=== PATIENT | female | born 1965 | race Caucasian/White ===

== ENCOUNTER 2016-05-25 09:17 | Emergency (ER) | payer OTHER ==
--- NOTE | 2016-05-25 09:49 | DIAGNOSTIC IMAGING REPORT ---
PROCEDURE: XR CHEST 1 VIEW INDICATION: CHEST PAIN, initial encounter TECHNIQUE: Portable AP view 09:37 a.m. COMPARISON: Chest x-ray 11/27/2015 FINDINGS: Lungs are clear. Heart and mediastinum are normal. Thorax is normal. No significant interval change. IMPRESSION: 1. Negative chest.
--- NOTE | 2016-05-25 14:39 | ED NURSING NOTES ---
Clinical Report - Nurses [facility] [place] [address] 05/25/2016 9:18 Patient: ART MAURICE TRIAGE Triage time 09:43. Acuity: LEVEL 3. Chief Complaint: CHEST PAIN and DISCOMFORT and (for 3 days, but this morning, pt developed squeezing sensation in left arm, posterior left neck, and left shoulder blade). --09:48 Carissa Young R.N. 09:43 05/25/16. BP: 124/107. HR: 110. RR: 18. O2 saturation: 98%. Temp: 98.1 F. Pain level now: 05/18. --09:48 Carissa Young R.N. Weight: 77 kg stated. Height/Length: 62 inches Per Patient. BMI: 31.1. --09:47 Craissa Young R.N. Medications HydrOXYzine HCl Oral 25 mg, 3x a day. Pramipexole Dihydrochloride ER Oral 0.125 mg, 2-3 tablets at hs. --09:58 Carissa Young R.N. FLUoxetine HCl Oral 10 mg, daily. --09:59 Carissa Young R.N. Gabapentin Oral 100 mg, 3x a day. --09:59 Carissa Young R.N. Prazosin HCl Oral 1 mg, at bedtime. --10:00 Carissa Young R.N. TraZODone HCl Oral 50 mg to 100 mg, at bedtime. --10:00 Carissa Young R.N. Vitamin D Oral 50,000 units once a week. --10:01 Carissa Young R.N. Allergies No Known Drug Allergy. --09:45 Carissa Young R.N. History Arrived by private vehicle. Historian: patient. Primary physician ([facility]). This started just prior to arrival and today. PAST MEDICAL HX: Immunizations: up-to-date. SOCIAL HX: Heavy tobacco smoker (cigarette)- 1 pack per day. Alcohol use. Patient is a recovering alcoholic. (last drink was 8 months ago). No drug use. FALL RISK ASSESSMENT: Fall risk assessment completed. No fall risk identified. FUNCTIONAL ASSESSMENT: Functional assessment: no impairments noted. LEARNING NEEDS ASSESSMENT: (anxiety). --09:48 Carissa Young R.N. 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 --09:51 Carissa Young R.N. PROBLEMS: Alcoholism. Rib Fracture. Alcohol Intoxication. Peptic Ulcer Disease. PTSD. Panic Attack. Abdominal Pain. Depression. --09:46 Carissa Young R.N. ADDITIONAL SURGERIES: Arm. Hernia Repair. Hysterectomy. Tubal Ligation. --09:47 Carissa Young R.N. Interventions ID band on patient. To room. --09:48 Carissa Young R.N. PHYSICAL ASSESSMENT GENERAL / NEURO / PSYCH: Alert. Oriented X 4. Appears anxious. (Pt is very, very anxious, now states squeezing sensation is going down her right arm). --09:49 Carissa Young R.N. NURSING PROGRESS NOTES 09:42 05/25/2016 Site #1 started via IV in the right antecubital space with an 20g angiocath, with aseptic technique and good blood return; one attempt. Blood drawn: rainbow set. Labeled in the presence of the patient and sent to the lab. Saline lock flushed with 10 mL saline. --09:52 Carissa Young R.N. 09:50 05/25/16. Patient gowned. Head of bed elevated. Patient identifiers checked. Bed placed in lowest position. Patient ready for evaluation- chart flagged. --09:50 Carissa Young R.N. 09:57 05/25/2016 Aspirin PO Tablets 325 mg given. Allergies verified and confirmed 5 rights. --09:57 Carissa Young R.N. 10:10 05/25/16. Oxygen administered by nasal cannula at 2 liters. ship superintendent, pulse oximeter and NIBP monitor placed on patient; manager information- Lead II and V1; monitor alarms on. --10:10 Carissa Young R.N. EKG time: (9:34 AM). EKG was performed by a tech and shown to the ED physician. --10:12 Antonia Nichole 12:00 05/25/16. BP: 102/55. HR: 76. RR: 18. O2 saturation: 99% on nasal cannula at 2 liters/minute. --13:19 Carissa Young R.N. 12:30 05/25/16. BP: 103/56. HR: 80. RR: 18. O2 saturation: 98%. --13:23 Carissa Young R.N. 13:15 05/25/16. BP: 95/37. HR: 78. RR: 19. O2 saturation: 100% on nasal cannula at 2 liters/minute. --13:25 Carissa Young R.N. 13:29 05/25/16. Assisted patient to bathroom, to ambulate and back to bed; tolerated well. --13:29 Carissa Young R.N. 14:54 05/25/2016 Site #1 removed upon discharge. Catheter intact. Bandage applied. --14:54 Carissa Young R.N. DISPOSITION / DISCHARGE 14:53 05/25/16. Condition at departure: improved. No learning barriers present. Reviewed warnings (avoid stimulants). Reviewed referral to family practice for followup. Verbalized understanding. Written instructions provided. --14:53 Carissa Young R.N. 14:52 05/25/16. BP: 94/49. HR: 86. RR: 18. O2 saturation: 100%. --14:53 Carissa Young R.N. Locked/Released at 05/25/2016 16:36 by Carissa Young R.N.
--- NOTE | 2016-05-25 14:39 | ED ORDER SUMMARY ---
..... Patient: ART MAURICE OrderSheet [facility] VisitID: [id number] [address] [place] [address] 50y, F Registration Date/Time: 05/25/2016 ORDER SHEET Weight: 77 kg (stated) Allergies: No Known Drug Allergy GENERAL ORDERS: Chest 1V Urgent (09:05/25/2016 Ailyn CARRERA) (Ack 9:42 RKnandiniuga) (9:51 LSullivan R.N.) Coal Pipeline Operator (Continuous) (05/25/2016 Ailyn CARRERA) (10:09 LSullivan R.N.) CBC w Diff Urgent (05/25/2016 Ailyn CARRERA) (Ack 9:42 RKnandiniuga) (9:51 LSullivan R.N.) CMP Urgent (05/25/2016 Ailyn CARRERA) (Ack 9:42 RKnandiniuga) (9:51 LSullivan R.N.) UA-Culture if indicated Urgent (05/25/2016 Ailyn CARRERA) (Ack 9:42 RKnandiniuga) (9:51 LSullivan R.N.) PT with INR Urgent (05/25/2016 Ailyn CARRERA) (Ack 9:42 RKnandiniuga) (9:51 LSullivan R.N.) PTT Urgent (05/25/2016 Ailyn CARRERA) (Ack 9:42 RKnandiniuga) (9:51 LSullivan R.N.) Amylase Urgent (05/25/2016 Ailyn CARRERA) (Ack 9:42 RKnandiniuga) (9:51 LSullivan R.N.) Lipase Urgent (05/25/2016 Ailyn CARRERA) (Ack 9:42 RKnandiniuga) (9:51 LSullivan R.N.) D-Dimer Urgent (05/25/2016 Ailyn CARRERA) (Ack 9:42 RKdon) (9:51 LSullivan R.N.) CPK Urgent (05/25/2016 Ailyn CARRERA) (Ack 9:42 RKdon) (9:51 LSullivan R.N.) Troponin-I Urgent (09:05/25/2016 Ailyn CARRERA) (Ack 9:42 RKaruga) (9:51 LSullivan R.N.) Oxygen (2 L/min) (NC) (:05/25/2016 Ailyn CARRERA) (10:09 Jdivan R.N.) EKG - ER Stat (:05/25/2016 Ailyn CARRERA) (9:40 RKaruga) Pulse oximeter (:05/25/2016 Ailyn CARRREA) (9:51 Jalyn R.N.) CPK (repeat enzymes - draw at 13:40) Urgent (10:58 05/25/2016 Ailyn CARRERA) (Ack 11:04 LTapper) (14:03 LTapper) Troponin-I (repeat enzymes - draw at 13:40) Urgent (10:58 05/25/2016 Ailyn CARRERA) (Ack 11:04 LTapper) (14:03 LTapper) MEDICATION ORDERS: Aspirin PO 325 mg (NOW) (:05/25/2016 Ailyn CARRERA) (9:57 Jalyn R.N.) IV FLUIDS: IV Saline Lock (05/25/2016 Ailyn CARRERA) (9:52 LSeduardaivan R.N.) ORDER SHEET NOTES: [Electronically signed by Carissa Young R.N. (16:36 05/25/2016)] [Electronically signed by Kishore Benoit MD (22:10 05/27/2016)] [Electronically locked/signed by Carissa Young R.N. (16:36 05/25/2016)]
--- NOTE | 2016-05-25 14:39 | ED ORDER SUMMARY ---
..... Patient: ART MAURICE OrderSheet [facility] VisitID: [id number] [address] [place] [address] 50y, F Registration Date/Time: 05/25/2016 ORDER SHEET Weight: 77 kg (stated) Allergies: No Known Drug Allergy GENERAL ORDERS: Chest 1V Urgent (09:05/25/2016 Ailyn CARRERA) (Ack 9:42 RKnandiniuga) (9:51 LSullivan R.N.) Integrity Director (Continuous) (05/25/2016 Ailyn CARRERA) (10:09 LSullivan R.N.) CBC w Diff Urgent (05/25/2016 Ailyn CARRERA) (Ack 9:42 RKnandiniuga) (9:51 LSullivan R.N.) CMP Urgent (05/25/2016 Ailyn CARRERA) (Ack 9:42 RKnandiniuga) (9:51 LSullivan R.N.) UA-Culture if indicated Urgent (05/25/2016 Ailyn CARRERA) (Ack 9:42 RKnandiniuga) (9:51 LSullivan R.N.) PT with INR Urgent (05/25/2016 Ailyn CARRERA) (Ack 9:42 RKnandiniuga) (9:51 LSullivan R.N.) PTT Urgent (05/25/2016 Ailyn CARRERA) (Ack 9:42 RKnandiniuga) (9:51 LSullivan R.N.) Amylase Urgent (05/25/2016 Ailyn CARRERA) (Ack 9:42 RKnandiniuga) (9:51 LSullivan R.N.) Lipase Urgent (05/25/2016 Ailyn CARRERA) (Ack 9:42 RKnandiniuga) (9:51 LSullivan R.N.) D-Dimer Urgent (05/25/2016 Ailyn CARRERA) (Ack 9:42 RKdon) (9:51 LSullivan R.N.) CPK Urgent (05/25/2016 Ailyn CARRERA) (Ack 9:42 RKdon) (9:51 LSullivan R.N.) Troponin-I Urgent (09:05/25/2016 Ailyn CARRERA) (Ack 9:42 RKaruga) (9:51 LSullivan R.N.) Oxygen (2 L/min) (NC) (:05/25/2016 Ailyn CARRERA) (10:09 Jdivan R.N.) EKG - ER Stat (:05/25/2016 Ailyn CARRERA) (9:40 RKaruga) Pulse oximeter (:05/25/2016 Ailyn CARRERA) (9:51 Jalyn R.N.) CPK (repeat enzymes - draw at 13:40) Urgent (10:58 05/25/2016 Ailyn CARRERA) (Ack 11:04 LTapper) (14:03 LTapper) Troponin-I (repeat enzymes - draw at 13:40) Urgent (10:58 05/25/2016 Ailyn CARRERA) (Ack 11:04 LTapper) (14:03 LTapper) MEDICATION ORDERS: Aspirin PO 325 mg (NOW) (:05/25/2016 Ailyn CARRERA) (9:57 Jalyn R.N.) IV FLUIDS: IV Saline Lock (05/25/2016 Ailyn CARRERA) (9:52 LSeduardaivan R.N.) ORDER SHEET NOTES: [Electronically signed by Carissa Young R.N. (16:36 05/25/2016)] [Electronically signed by Kishore Benoit MD (22:10 05/27/2016)] [Electronically locked/signed by Carissa Young R.N. (16:36 05/25/2016)]
--- NOTE | 2016-05-25 14:39 | ED CLINICAL REPORT ---
Clinical Report - Physicians/Mid Levels [facility] [address] [place] [address] 05/25/2016 9:18 Patient: ART MAURICE Time Seen: 09:52. Arrived- By private vehicle. Historian- patient. HISTORY OF PRESENT ILLNESS Chief Complaint: CHEST PAIN. It is described as pressure and sharp and it is described as located in the central chest and left chest area and radiating to the neck and to the left arm. At its maximum, severity described as 5 / 10. When seen in the E.D., it was gone. This started several days ago and is now gone. It was abrupt in onset and has been intermittent. The patient has had nausea. No vomiting or difficulty breathing. As a separate complaint, she has experienced diaphoresis. REVIEW OF SYSTEMS No chills, fever, sweats, abdominal pain or nausea. No vomiting. She has had constipation (She underwent colonoscopy last week - she has been alternating between diarrhea and constipation since). She has had diarrhea. All systems otherwise negative, except as recorded above. PAST HISTORY Problems: Seizure Disorder. Alcoholism. Rib Fracture. Alcohol Intoxication. Peptic Ulcer Disease. PTSD. Panic Attack. Anxiety Reaction. Abdominal Pain. Depression. Additional Surgeries: Arm. Hernia Repair. Hysterectomy. Tubal Ligation. Medications: Vitamin D Oral 50,000 units once a week. TraZODone HCl Oral 50 mg to 100 mg, at bedtime. Prazosin HCl Oral 1 mg, at bedtime. Gabapentin Oral 100 mg, 3x a day. FLUoxetine HCl Oral 10 mg, daily. HydrOXYzine HCl Oral 25 mg, 3x a day. Pramipexole Dihydrochloride ER Oral 0.125 mg, 2-3 tablets at hs. Allergies: No Known Drug Allergy. SOCIAL HISTORY Current every day heavy tobacco smoker (cigarette)- 1 pack per day. Alcohol use. Last drink was 8 months ago. Patient is a recovering alcoholic. FAMILY HISTORY Denies family medical history. ADDITIONAL NOTES The nursing notes have been reviewed. PHYSICAL EXAM Vital Signs: 05/25/2016 09:43 BP: 124/107. HR: 110. RR: 18. O2 saturation: 98%. Temp: 98.1 F. Pain level now: 05/18. Have been reviewed. Appearance: Alert. Eyes: Pupils equal, round and reactive to light. ENT: Pharynx normal. Neck: Normal inspection. Neck supple. CVS: Normal heart rate and rhythm. Heart sounds normal. Respiratory: No respiratory distress. Breath sounds normal. Abdomen: Soft and nontender. Bowel sounds normal. No organomegaly. No mass. Back: Normal external inspection. Skin: Skin warm and dry. Normal skin color. Normal skin turgor. Extremities: Extremities exhibit normal ROM. No lower extremity edema. Neuro: No motor deficit. No sensory deficit. LABS, X-RAYS, AND EKG EKG: Normal EKG. Rate: 98. EKG unchanged when compared with prior EKG. (21 Nov 2009). The study has been independently viewed by me. Chest X-ray: No acute disease. The X-rays were interpreted by the radiologist and contemporaneously by me. Laboratory Tests: UA-Culture if indicated: (TREVOR: 05/25/2016 09:27) ( [facility]25[facility] 10:13) Final results Test Result Flag Units (Reference) URINE COLOR YELLOW URINE APPEARANCE CLEAR URINE GLUCOSE NEGATIVE (NEGATIVE) URINE BILIRUBIN NEGATIVE (NEGATIVE) URINE KETONE NEGATIVE (NEGATIVE) URINE SPECIFIC GRAVITY <= 1.005 L (1.010-1.030) URINE PH 5.5 (5.0-8.0) URINE PROTEIN NEGATIVE (NEGATIVE) URINE UROBILINOGEN 0.2 EU/dL (0.2-1.0) URINE NITRITE NEGATIVE (NEGATIVE) URINE BLOOD NEGATIVE (NEGATIVE) URINE LEUK ESTERASE NEGATIVE (NEGATIVE) URINE RBC NONE SEEN rbc/hpf (0-1) URINE WBC NONE SEEN wbc/hpf (0-1) URINE EPITHELIAL CELLS 1-3 EPI/hpf (0-5) URINE BACTERIA NONE SEEN (NONE SEEN) URINE COMMENT CULT NOT INDICATED URINE CULTURES ARE SET-UP BASED ON THE FOLLOWING CRITERIA:POSITIVE NITRITEPOSITIVE LEUKOCYTE ESTERASEGREATER THAN 10 WHITE BLOOD CELLSMODERATE (2+) OR GREATER BACTERIA CBC w Diff: (TREVOR: 05/25/2016 09:40) ( [facility] 10[facility]) Final results Test Result Flag Units (Reference) WHITE BLOOD COUNT 9.5 K/uL (4.5-11.5) RED BLOOD COUNT 4.10 M/uL (4.00-5.20) HEMOGLOBIN 12.4 gm/dL (12.0-16.0) HEMATOCRIT 36.7 % (36.0-46.0) MEAN CELL VOLUME 90 fL (80-100) MEAN CORPUSCULAR HGB 30 pg (26-34) MEAN CORPUSCULAR HGB CONC 34 g/dL (31-37) RED CELL DISTRIBUTION WIDTH 14.1 % (11.6-14.8) PLATELET COUNT 211 K/uL (150-400) NEUTROPHIL % 64.4 % (50-75) LYMPH % 27.7 % (25-40) MONO % 6.1 % (3-14) EOSINOPHIL % 1.1 % (0-4) BASOPHIL % 0.7 % (0-2) PT with INR: (TREVOR: 05/25/2016 09:40) ( M[facility]cvd 05/25/2016 10:14) Final results Test Result Flag Units (Reference) INR 1.0 (0.8-1.2) Low Intensity Therapy: INR 1.5-2.0 PT range 18.5-23.1Mod.Intensity Therapy: INR 2.0-3.0 PT range 23.1-31.5High Intensity Therapy: INR 2.5-3.5 PT range 27.4-35.5High Intensity Therapy 2: INR 3.0-4.0 PT range 31.5-39.3 APTT 27 SECONDS (24-34) D-DIMER QUANTITATIVE < 0.27 L ug/mLFEU (0.27-0.52) The primary value of this quantitative assay relates toits negative predictive value (i.e. exclusion) of pulmonaryembolism/deep vein thrombosis/DIC.Elevated levels of d-dimer may also occur with:, age, cancer, inflammation, liver disease,post-op, infection, hematoma, coronary disease, peripheralarteriopathy, bleeding disorders and thrombolytic treatment.Results should be correlated with other clinical andradiological data.Testing Methodology: Latex Immunoassay CPK: (TREVOR: 05/25/2016 13:55) ( MsgRcvd 05/25/2016 14:37) Final results Test Result Flag Units (Reference) CPK 63 U/L (24-260) TROPONIN I <0.05 L ng/mL (0.00-1.5) TROPONIN REFERENCE RANGE:<0.1 NEGATIVE0.1-1.5 INDETERMINANT>1.5 POSITIVE CMP: (TREVOR: 05/25/2016 09:40) ( MsgRcvd 05/25/2016 10:16) Final results Test Result Flag Units (Reference) GLUCOSE 112 H mg/dL (70-110) BUN 12 mg/dL (7-18) CREATININE 0.6 mg/dL (0.6-1.3) Estimated GFR >60 mL/min Estimated GFR- >60 mL/min Note: Persistent reduction over 3 months in eGFR<60 mL/min/1.73 m2 defines CKD. Patients with eGFR values>=60 mL/min/1.73 m2 may also have CKD if evidence ofpersistent proteinuria. Additional information may be foundat www.kidney.org. SODIUM 140 mmol/L (136-145) POTASSIUM 3.8 mmol/L (3.5-5.1) CHLORIDE 106 mmol/L (98-107) CARBON DIOXIDE 24 mmol/L (21-32) CALCIUM 8.5 mg/dL (8.5-10.1) TOTAL PROTEIN 6.4 g/dL (6.4-8.2) ALBUMIN 3.6 g/dL (3.3-5.0) BILIRUBIN, TOTAL 0.4 mg/dL (0.0-1.0) ALKALINE PHOSPHATASE 82 U/L (46-116) AST (SGOT) 17 U/L (15-37) ALT (SGPT) 49 U/L (12-78) LIPASE 200 U/L (73-393) AMYLASE 95 U/L (25-115) CPK 75 U/L (24-260) TROPONIN I <0.05 ng/mL (0.00-1.5) TROPONIN REFERENCE RANGE:<0.1 NEGATIVE0.1-1.5 INDETERMINANT>1.5 POSITIVE . PROGRESS AND PROCEDURES Course of Care: Patient is stable. Patient/family counseled. Old medical records reviewed. Disposition: Discharged. Condition: stable. CLINICAL IMPRESSION Costochondritis Anxiety reaction. INSTRUCTIONS Avoid stimulants (such as cigarettes, coffee, cold medicines, sinus medicines, street drugs). Warnings: Further evaluation is necessary. GENERAL WARNINGS: Return or contact your physician immediately if your condition worsens or changes unexpectedly, if not improving as expected, or if other problems arise. Your Current Medications: CONTINUE TAKING THE FOLLOWING MEDICATIONS: FLUoxetine HCl Oral : 10 mg daily. Gabapentin Oral : 100 mg 3x a day. HydrOXYzine HCl Oral : 25 mg 3x a day. Pramipexole Dihydrochloride ER Oral : 0.125 mg 2-3 tablets at hs. Prazosin HCl Oral : 1 mg at bedtime. TraZODone HCl Oral : 50 mg to 100 mg at bedtime. Vitamin D Oral : 50,000 units once a week. Understanding of the discharge instructions verbalized by patient. Follow-up with: [facility], Family Practice, , [address] [place] [address] Follow up in seven days. Call for the next available appointment. (Electronically signed by Kishore Benoit MD 05/27/2016 22:10)
--- NOTE | 2016-05-25 14:39 | ED NURSING NOTES ---
Clinical Report - Nurses [facility] [place] [address] [place] [address] 05/25/2016 9:18 Patient: ART MAURICE TRIAGE Triage time 09:43. Acuity: LEVEL 3. Chief Complaint: CHEST PAIN and DISCOMFORT and (for 3 days, but this morning, pt developed squeezing sensation in left arm, posterior left neck, and left shoulder blade). --09:48 Carissa Young R.N. 09:43 05/25/16. BP: 124/107. HR: 110. RR: 18. O2 saturation: 98%. Temp: 98.1 F. Pain level now: 05/18. --09:48 Carissa Young R.N. Weight: 77 kg stated. Height/Length: 62 inches Per Patient. BMI: 31.1. --09:47 Carissa Young R.N. Medications HydrOXYzine HCl Oral 25 mg, 3x a day. Pramipexole Dihydrochloride ER Oral 0.125 mg, 2-3 tablets at hs. --09:58 Carissa Young R.N. FLUoxetine HCl Oral 10 mg, daily. --09:59 Carissa Young R.N. Gabapentin Oral 100 mg, 3x a day. --09:59 Carissa Young R.N. Prazosin HCl Oral 1 mg, at bedtime. --10:00 Carissa Young R.N. TraZODone HCl Oral 50 mg to 100 mg, at bedtime. --10:00 Carissa Young R.N. Vitamin D Oral 50,000 units once a week. --10:01 Carissa Young R.N. Allergies No Known Drug Allergy. --09:45 Carissa Young R.N. History Arrived by private vehicle. Historian: patient. Primary physician ([facility]). This started just prior to arrival and today. PAST MEDICAL HX: Immunizations: up-to-date. SOCIAL HX: Heavy tobacco smoker (cigarette)- 1 pack per day. Alcohol use. Patient is a recovering alcoholic. (last drink was 8 months ago). No drug use. FALL RISK ASSESSMENT: Fall risk assessment completed. No fall risk identified. FUNCTIONAL ASSESSMENT: Functional assessment: no impairments noted. LEARNING NEEDS ASSESSMENT: (anxiety). --09:48 Carissa Young R.N. 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 --09:51 Carissa Young R.N. PROBLEMS: Alcoholism. Rib Fracture. Alcohol Intoxication. Peptic Ulcer Disease. PTSD. Panic Attack. Abdominal Pain. Depression. --09:46 Carissa Young R.N. ADDITIONAL SURGERIES: Arm. Hernia Repair. Hysterectomy. Tubal Ligation. --09:47 Carissa Young R.N. Interventions ID band on patient. To room. --09:48 Carissa Young R.N. PHYSICAL ASSESSMENT GENERAL / NEURO / PSYCH: Alert. Oriented X 4. Appears anxious. (Pt is very, very anxious, now states squeezing sensation is going down her right arm). --09:49 Carissa Young R.N. NURSING PROGRESS NOTES 09:42 05/25/2016 Site #1 started via IV in the right antecubital space with an 20g angiocath, with aseptic technique and good blood return; one attempt. Blood drawn: rainbow set. Labeled in the presence of the patient and sent to the lab. Saline lock flushed with 10 mL saline. --09:52 Carissa Young R.N. 09:50 05/25/16. Patient gowned. Head of bed elevated. Patient identifiers checked. Bed placed in lowest position. Patient ready for evaluation- chart flagged. --09:50 Carissa Young R.N. 09:57 05/25/2016 Aspirin PO Tablets 325 mg given. Allergies verified and confirmed 5 rights. --09:57 Carissa Young R.N. 10:10 05/25/16. Oxygen administered by nasal cannula at 2 liters. woodworking bench carpenter, pulse oximeter and NIBP monitor placed on patient; river boat captain- Lead II and V1; monitor alarms on. --10:10 Carissa Young R.N. EKG time: (9:34 AM). EKG was performed by a tech and shown to the ED physician. --10:12 Antonia Nichole 12:00 05/25/16. BP: 102/55. HR: 76. RR: 18. O2 saturation: 99% on nasal cannula at 2 liters/minute. --13:19 Carissa Young R.N. 12:30 05/25/16. BP: 103/56. HR: 80. RR: 18. O2 saturation: 98%. --13:23 Carissa Young R.N. 13:15 05/25/16. BP: 95/37. HR: 78. RR: 19. O2 saturation: 100% on nasal cannula at 2 liters/minute. --13:25 Carissa Young R.N. 13:29 05/25/16. Assisted patient to bathroom, to ambulate and back to bed; tolerated well. --13:29 Carissa Young R.N. 14:54 05/25/2016 Site #1 removed upon discharge. Catheter intact. Bandage applied. --14:54 Carissa Young R.N. DISPOSITION / DISCHARGE 14:53 05/25/16. Condition at departure: improved. No learning barriers present. Reviewed warnings (avoid stimulants). Reviewed referral to family practice for followup. Verbalized understanding. Written instructions provided. --14:53 Carissa Young R.N. 14:52 05/25/16. BP: 94/49. HR: 86. RR: 18. O2 saturation: 100%. --14:53 Carissa Young R.N. Locked/Released at 05/25/2016 16:36 by Carissa Young R.N.
--- NOTE | 2016-05-27 22:11 | ED MED RECONCILIATION SUMMARY ---
Patient: ART MAURICE Medication Reconciliation Report [facility] VisitID: [id number] [address] [place] [address] 50y, F Registration Date/Time: 05/25/2016 Weight: 77 kg Height/Length: 62 in. BMI: 31.1 ALLERGIES: No Known Drug Allergy The patient's Home Medications are listed below: CONTINUE TAKING THE FOLLOWING MEDICATIONS: FLUoxetine HCl Oral 10 mg, daily Gabapentin Oral 100 mg, 3x a day HydrOXYzine HCl Oral 25 mg, 3x a day Pramipexole Dihydrochloride ER Oral 0.125 mg, 2-3 tablets at hs Prazosin HCl Oral 1 mg, at bedtime TraZODone HCl Oral 50 mg to 100 mg, at bedtime Vitamin D Oral 50,000 units once a week The source(s) of the original Home Medication information: Not obtained. The following Medications were given to the patient in the Emergency Department: Aspirin [PO] PO 325 mg, administered: 05/25/2016 9:57:00 AM The following Medications were prescribed to the patient: None.
--- NOTE | 2016-05-27 22:11 | ED MED RECONCILIATION SUMMARY ---
Patient: ART MAURICE Medication Reconciliation Report [facility] VisitID: [id number] [address] [place] [address] 50y, F Registration Date/Time: 05/25/2016 Weight: 77 kg Height/Length: 62 in. BMI: 31.1 ALLERGIES: No Known Drug Allergy The patient's Home Medications are listed below: CONTINUE TAKING THE FOLLOWING MEDICATIONS: FLUoxetine HCl Oral 10 mg, daily Gabapentin Oral 100 mg, 3x a day HydrOXYzine HCl Oral 25 mg, 3x a day Pramipexole Dihydrochloride ER Oral 0.125 mg, 2-3 tablets at hs Prazosin HCl Oral 1 mg, at bedtime TraZODone HCl Oral 50 mg to 100 mg, at bedtime Vitamin D Oral 50,000 units once a week The source(s) of the original Home Medication information: Not obtained. The following Medications were given to the patient in the Emergency Department: Aspirin [PO] PO 325 mg, administered: 05/25/2016 9:57:00 AM The following Medications were prescribed to the patient: None.
--- NOTE | 2016-05-27 22:11 | ED MAR SUMMARY ---
..... Medication Administration Record [facility] [address] [place] [address] Patient: ART MAURICE Visit ID: [id number] 50y, F Weight: 77.0 kg Height/Length: 62 in BMI: 31.1 ALLERGIES: No Known Drug Allergy Given 09:57 05/25/2016 Carissa Young RJustina Medication Administered: ASPIRIN [PO], Dose: 325 mg Tablets PO. Medication Ordered: Aspirin PO 325 mg (NOW).
--- NOTE | 2016-05-27 22:11 | ED MAR SUMMARY ---
..... Medication Administration Record [facility] [address] [place] [address] Patient: ART MAURICE Visit ID: [id number] 50y, F Weight: 77.0 kg Height/Length: 62 in BMI: 31.1 ALLERGIES: No Known Drug Allergy Given 09:57 05/25/2016 Carissa Young RJustina Medication Administered: ASPIRIN [PO], Dose: 325 mg Tablets PO. Medication Ordered: Aspirin PO 325 mg (NOW).
--- NOTE | 2016-05-27 22:11 | ED DISCHARGE INSTRUCTIONS ---
Patient: ART MAURICE General Instructions [facility] VisitID: [id number] [place] [address] 50y, F Registration Date/Time: 05/25/2016 Costochondritis Anxiety reaction. INSTRUCTIONS Avoid stimulants (such as cigarettes, coffee, cold medicines, sinus medicines, street drugs). Warnings: Further evaluation is necessary. GENERAL WARNINGS: Return or contact your physician immediately if your condition worsens or changes unexpectedly, if not improving as expected, or if other problems arise. Your Current Medications: CONTINUE TAKING THE FOLLOWING MEDICATIONS: FLUoxetine HCl Oral : 10 mg daily. Gabapentin Oral : 100 mg 3x a day. HydrOXYzine HCl Oral : 25 mg 3x a day. Pramipexole Dihydrochloride ER Oral : 0.125 mg 2-3 tablets at hs. Prazosin HCl Oral : 1 mg at bedtime. TraZODone HCl Oral : 50 mg to 100 mg at bedtime. Vitamin D Oral : 50,000 units once a week. Understanding of the discharge instructions verbalized by patient. Follow-up with: [facility], [facility], , [address] [place] [address] Follow up in seven days. Call for the next available appointment. ADDITIONAL INFORMATION Chest Wall Pain: Costochondritis The chest pain that you have had today is caused by Costochondritis. This condition is due to an inflammation of the cartilage joining the ribs to the breastbone. It is not caused by heart or lung problems. Although the exact cause for costochondritis is not known, it often occurs during times of emotional stress. It can be painful, but it is not dangerous. It usually disappears within one to two weeks, but may recur. Rarely, a more serious condition may cause symptoms similar to costochondritis; therefore, watch for the warning signs listed below. Home Care: If you feel that emotional stress is a cause of your condition, try to identify sources of that stress. It may not be obvious! Learn ways to deal with the stress in your life such as regular exercise, muscle relaxation, meditation, or simply taking time out for yourself. For more information about this, consult your doctor or go to a local bookstore and review books and tapes available on the subject of stress reduction. You may use acetaminophen (Tylenol) or ibuprofen (Motrin, Advil) to control pain, unless another pain medicine was prescribed. [ NOTE: If you have liver disease or ever had a stomach ulcer, talk with your doctor before using these medicines.] The use of heat (hot wet compress or heating pad) with or without local analgesic creams (Deep Heat Rub, Tanner Ma) will be helpful to reduce pain. Follow Up with your doctor as directed or sooner if you do not start to improve within the next two days. Get Prompt Medical Attention if any of the following occur: A change in the type of pain: if it feels different, becomes more severe, lasts longer, or spreads into your shoulder, arm, neck, jaw or back Shortness of breath or increased pain with breathing Weakness, dizziness, or fainting Cough with dark colored sputum (phlegm) or blood Abdominal pain Dark red or black stools Fever of 100.4F (38C) or higher, or as directed by your healthcare provider Anxiety Reaction (Child) Stress and anxiety are part of life. It is normal for children to have a few worries. However some children have extreme feelings of fear, worry, or panic. They cannot control their anxiety. This causes significant distress. This condition is called an anxiety reaction. An anxiety reaction may cause chest pain, a racing pulse, sweating, nausea, diarrhea, and muscle tension. It may also cause shortness of breath, dry mouth, and frequent urination. Some children may have trouble sleeping or trouble concentrating and remembering. Anxiety frequently occurs with other psychiatric disorders. It is common in children who have attention deficit hyperactivity disorder (ADHD). Anxiety is treated with supportive counseling and often along with medications. A child with anxiety will likely have a recurrence if the condition is not addressed. Home Care: Medications: The doctor may prescribe medications to treat anxiety. Follow the doctors instructions for giving these medications to your child. It is important to not stop this medication without first consulting the sapna doctor. General Care: Dont ignore your sapna fears. Encourage your child to talk about his or her concerns. Be supportive. Encourage your child to ask for help when he or she is feeling overwhelmed. Teach your child to breathe slowly and deeply when anxiety occurs. Encourage exercise and fun activities. Note your sapna behavior in different situations. This record can help your doctor provide the most appropriate care. Follow Up as advised by the doctor or our staff. Get Prompt Medical Attention if any of the following occurs: Continued anxiety, fear, or panic Inability to function Trouble falling or staying asleep Any behavior that causes concern You have been given the following additional information: Chest Wall Pain, Costochondritis Anxiety Reaction (Child) (Electronically signed by Kishore Benoit MD 05/27/2016 22:10)
== END 2016-05-25 14:45 | disposition home or self-care (01) ==
LOC: ED SRH 09:17
DX: M94.0 Chondrocostal junction syndrome [Tietze] (principal); F41.1 Generalized anxiety disorder; F17.210 Nicotine dependence, cigarettes, uncomplicated; Z79.899 Other long term (current) drug therapy
CPT/HCPCS: 90004; 90100; 90616; 91556; 92235; 92530; 92610; 94001; 94060; 95059

== ENCOUNTER 2016-10-16 20:20 | Emergency (ER) | payer OTHER ==
--- NOTE | 2016-10-16 21:29 | ED ORDER SUMMARY ---
..... Patient: ART MAURICE OrderSheet [facility] VisitID: [id number] [place] [address] 51y, F Registration Date/Time: 10/16/2016 ORDER SHEET Weight: 81.6 kg (stated) Allergies: No Known Drug Allergy GENERAL ORDERS: Suture Set-up: (20:38 10/16/2016 Salomón Crawford) (Ack 20:40 JQuivey R.N.) (20:51 JQuivey R.N.) MEDICATION ORDERS: Lidocaine Injection 2 % (soln) (NOW) (20:37 10/16/2016 Salomón Crawford) (Ack 20:40 JQuivey R.N.) (20:51 JQuivey R.N.) Sensorcaine Injection 0.5 % (soln) (NOW) (20:37 10/16/2016 Salomón Crawford) (Ack 20:40 JQuivey R.N.) (20:52 JQuivey R.N.) Tdap IM 0.5 mL (NOW, per protocol) (20:38 10/16/2016 Salomón Crawford) (Ack 20:40 JQuivey R.N.) (20:51 JQuivey R.N.) IV FLUIDS: ORDER SHEET NOTES: [Electronically signed by Koko Mclaughlin R.N. (21:47 10/16/2016)] [Electronically signed by Mann Oliveira Dr. (22:01 10/16/2016)] [Electronically locked/signed by Koko Mclaughlin R.N. (21:47 10/16/2016)]
--- NOTE | 2016-10-16 21:29 | ED CLINICAL REPORT ---
Clinical Report - Physicians/Mid Levels [facility] [address] [place] [address] 10/16/2016 20:24 Patient: ART MAURICE Time Seen: 20:35; initial patient contact. Arrived- By private vehicle. Historian- patient. HISTORY OF PRESENT ILLNESS Chief Complaint: Injury to the left index finger. The injury happened just prior to arrival. The patient sustained a laceration from a knife. Occurred at home. Patient is experiencing mild pain. Patient denies injury to the head or neck. REVIEW OF SYSTEMS The patient sustained a laceration. No swelling, tingling, numbness, weakness or foreign body. All systems otherwise negative, except as recorded above. PAST HISTORY Costochondritis. Seizure Disorder. Alcoholism. Rib Fracture. Alcohol Intoxication. Peptic Ulcer Disease. PTSD. Panic Attack. Anxiety Reaction. Depression. SURGERIES: Arm. Hernia Repair. Hysterectomy. Tubal Ligation. The patient's dominant hand is the right. Last tetanus immunization was more than 5 years ago. Medications: Pramipexole Dihydrochloride ER Oral 0.125 mg, 2-3 tablets at hs. Prazosin HCl Oral 1 mg, at bedtime. TraZODone HCl Oral 50 mg to 100 mg, at bedtime. Vitamin D Oral 50,000 units once a week. Allergies: No Known Drug Allergy. ADDITIONAL NOTES The nursing notes have been reviewed. PHYSICAL EXAM Vital Signs: 10/16/2016 20:32 BP: 95/69. HR: 88. RR: 16. O2 saturation: 98%. Temp: 98.2 F. Pain level now: 5/10. Have been reviewed as normal. Appearance: Alert. Oriented X3. No acute distress. Skin: Skin warm and dry. Extremities: Left index finger: subcutaneous 2.0 cm laceration of the dorsal aspect and PIP joint. Neurovascular intact distally. No swelling. No decreased flexion or extension. Hand and wrist exam otherwise negative. Extremities otherwise negative. Neuro, Vascular and Tendons: Vascular status intact. Sensation intact. Motor intact. Tendon function intact. No functional tendon deficit or tendon injury seen. Neuro: Oriented X 3. No motor deficit. No sensory deficit. PROGRESS AND PROCEDURES Digital Nerve Block - Finger: Per protocol, time-out completed immediately before the procedure. Digital nerve block performed on the left index finger. Volar approach utilized. Landmarks identified. Skin prepped. Total volume of 4 mL 2% Lidocaine and 0.5% Marcaine infiltrated via a single puncture using a 27-gauge needle. Patient cooperative during procedure. No complications encountered. Excellent anesthesia achieved. Laceration Repair: Location: left index finger. Per protocol, time-out completed immediately before the procedure. Length: 2 cm. Complexity: simple (sutured). Wound depth/shape- subcutaneous and linear. Wound is clean. Distal neuro/vascular/tendon status normal. Tendon examined. No tendon deficit. Anesthesia provided by digital block using 2% lidocaine and 0.50% Marcaine (4 mL). Prepped with Hibiclens. Wound cleansed and examined to the base in bloodless field extensively with normal saline. Closure of skin: interrupted 4-0 Prolene (4 sutures). Post-procedure: she is stable and there are no complications. Bleeding is controlled and neuro-vascular status is intact distal to the wound. Dressing applied. Tetanus immunization given. Estimated blood loss: 2 mL. Disposition: Discharged home in good and improved condition. Condition: good. CLINICAL IMPRESSION Single deep laceration to the left index finger.Treatment of laceration not delayed. No infection, foreign body present or left fingernail injury. INSTRUCTIONS Protect wound and keep wound area clean. Change dressing twice daily. You may wash wounds briefly, then dry. Apply bacitracin twice daily. Your Current Medications: CONTINUE TAKING THE FOLLOWING MEDICATIONS: Pramipexole Dihydrochloride ER Oral : 0.125 mg 2-3 tablets at hs. Prazosin HCl Oral : 1 mg at bedtime. TraZODone HCl Oral : 50 mg to 100 mg at bedtime. Vitamin D Oral : 50,000 units once a week. Follow-up: Follow up with your doctor in seven days for suture removal. Call for an appointment. Screening today revealed the patient's blood pressure to be in the normal range. (Electronically signed by Mann Oliveira Dr. 10/16/2016 22:01)
--- NOTE | 2016-10-16 21:29 | ED ORDER SUMMARY ---
..... Patient: ART MAURICE OrderSheet [facility] VisitID: [id number] [place] [address] 51y, F Registration Date/Time: 10/16/2016 ORDER SHEET Weight: 81.6 kg (stated) Allergies: No Known Drug Allergy GENERAL ORDERS: Suture Set-up: (20:38 10/16/2016 Salomón Crawford) (Ack 20:40 JQuivey R.N.) (20:51 JQuivey R.N.) MEDICATION ORDERS: Lidocaine Injection 2 % (soln) (NOW) (20:37 10/16/2016 Salomón Crawford) (Ack 20:40 JQuivey R.N.) (20:51 JQuivey R.N.) Sensorcaine Injection 0.5 % (soln) (NOW) (20:37 10/16/2016 Salomón Crawford) (Ack 20:40 JQuivey R.N.) (20:52 JQuivey R.N.) Tdap IM 0.5 mL (NOW, per protocol) (20:38 10/16/2016 Salomón Crawford) (Ack 20:40 JQuivey R.N.) (20:51 JQuivey R.N.) IV FLUIDS: ORDER SHEET NOTES: [Electronically signed by Koko Mclaughlin R.N. (21:47 10/16/2016)] [Electronically signed by Mann Oliveira Dr. (22:01 10/16/2016)] [Electronically locked/signed by Koko Mclaughlin R.N. (21:47 10/16/2016)]
--- NOTE | 2016-10-16 21:29 | ED NURSING NOTES ---
Clinical Report - Nurses [facility] [address] [place] [address] 10/16/2016 20:24 Patient: ART MAURICE TRIAGE Triage time 20:33. Acuity: LEVEL 4. Chief Complaint: INJURY TO THE LEFT INDEX FINGER. Alert. SEPSIS SCREEN: Sepsis Screen. Negative (no infection suspected/documented). JARRET COMA SCORE: [place] Coma Scale: 15- eyes open spontaneously (4); best verbal response- oriented x 4 (5); best motor response- obeys commands (6). --20:39 Koko Mclaughlin R.N. 20:32 10/16/16. BP: 95/69. HR: 88. RR: 16. O2 saturation: 98%. Temp: 98.2 F. Pain level now: 08/15. --20:39 Koko Mclaughlin R.N. Weight: 81.6 kg stated. Height/Length: 62 inches Per Patient. BMI: 32.9. --20:37 Koko Mclaughlin R.N. Medications Pramipexole Dihydrochloride ER Oral 0.125 mg, 2-3 tablets at hs. Prazosin HCl Oral 1 mg, at bedtime. TraZODone HCl Oral 50 mg to 100 mg, at bedtime. Vitamin D Oral 50,000 units once a week. --20:37 Koko Mclaughlin R.N. Medication/allergy information source: the patient. --20:39 Koko Mclaughlin R.N. Allergies No Known Drug Allergy. --20:37 Koko Mclaughlin R.N. History Arrived by private vehicle. Historian: patient. Accompanied by friend. Primary physician (Kari Lovelady). This occurred just prior to arrival. Occurred at home. She sustained a laceration from a knife. 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 PAST MEDICAL HX: Immunizations: up-to-date. The patient has had a hysterectomy. SOCIAL HX: Heavy tobacco smoker- 1 pack per day. No alcohol use or drug use. No infectious disease exposure. ABUSE ASSESSMENT: No report of abuse. FALL RISK ASSESSMENT: Fall risk assessment completed. No fall risk identified. NUTRITIONAL RISK ASSESSMENT: The nutritional risk assessment revealed no deficiencies. FUNCTIONAL ASSESSMENT: Functional assessment: no impairments noted. LEARNING NEEDS ASSESSMENT: The learning needs assessment revealed no barriers. SKIN INTEGRITY ASSESSMENT: Skin integrity risk assessment completed. No skin integrity risk identified. --20:39 Koko Mclaughlin R.N. PROBLEMS: Costochondritis. Seizure Disorder. Alcoholism. Rib Fracture. Alcohol Intoxication. Peptic Ulcer Disease. PTSD. Panic Attack. Anxiety Reaction. Depression. --20:37 Koko Mclaughlin R.N. ADDITIONAL SURGERIES: Arm. Hernia Repair. Hysterectomy. Tubal Ligation. --20:37 Koko Mclaughlin R.N. Interventions ID band on patient. To treatment room. --20:39 Koko Mclaughlin R.N. PHYSICAL ASSESSMENT 20:39. Ambulatory to room. GENERAL / NEURO / PSYCH: Oriented X 4. Alert. EXTREMITIES: Neuro-vascular status intact to the extremity. Left index finger: subcutaneous laceration with controlled bleeding. SKIN: Skin is warm and dry. --20:39 Koko Mclaughlin R.N. NURSING PROGRESS NOTES 20:40. Two patient identifiers checked. Call light placed in reach. Bed placed in lowest position. Brakes of bed on. Patient ready for evaluation- chart flagged. --20:40 Koko Mclaughlin R.N. 20:47 10/16/2016 TDAP IM 0.5 mL given. (Lot#: [id number], expiration date: 09/11/2018, Assistant Production Editor: sanofi pasteur). Given in the left deltoid. Allergies verified and confirmed 5 rights. Vaccine information statement provided to the patient. --20:51 Koko Mclaughlin R.N. 20:51 10/16/2016 Lidocaine Injection 2 % given. (On lac cart at bedside). --20:51 Koko Mclaughlin R.N. 20:51 10/16/2016 Sensorcaine (Bupivacaine HCl) Injection 0.5 % given. (On lac cart at bedside). --20:52 Koko Mclaughlin R.N. WOUND REPAIR: Preparation: suture tray set-up. --20:52 Koko Mclaughlin R.N. 21:23. WOUND REPAIR: Wound repair performed by ED physician. Assisted by one tech. The wound is located on the left index finger. Preparation: with 2% lidocaine and 0.50% Marcaine. Wound cleansed per physician and irrigated per physician. Procedure: wound repaired with sutures. Post-procedure: she was stable, no complications, bleeding controlled and neuro-vascular status intact distal to wound. Total time of assist / procedure: 15 minutes. --21:44 Koko Mclaughlin R.N. 21:38 Applied by [facility] cytology technologist. Applied dressing, following the application of antibiotic ointment (bacitracin). Secured with tube gauze. Aluminum-foam finger splint applied to left index finger by tech. --21:46 Koko Mclaughlin R.N. 21:40. The patient is calm and resting quietly. GENERAL / NEURO / PSYCH: Alert. Oriented X 4. RESPIRATORY: No respiratory distress. SKIN: Skin is warm and dry. --21:46 Koko Mclaughlin R.N. DISPOSITION / DISCHARGE Departure time: 21:41. Condition at departure: stable. No learning barriers present. Discharge instructions provided and reviewed with head wood grinder and the patient. Patient verbalized understanding. Written instructions provided in Tristanian. The patient was discharged home and accompanied by head wood grinder. She left the Emergency Department ambulatory and via private vehicle. Shredded Filler Hopper Feeder driving. FALL RISK ASSESSMENT: Fall risk assessment completed. No fall risk identified. --21:41 Koko Mclaughlin R.N. 21:37 10/16/16. BP: 136/83. HR: 82. RR: 16. O2 saturation: 100% on room air. Pain level now: 0/10. --21:41 Koko Mclaughlin R.N. Locked/Released at 10/16/2016 21:47 by Koko Mclaughlin R.N.
--- NOTE | 2016-10-16 21:29 | ED NURSING NOTES ---
Clinical Report - Nurses [facility] [address] [place] [address] 10/16/2016 20:24 Patient: ART MAURICE TRIAGE Triage time 20:33. Acuity: LEVEL 4. Chief Complaint: INJURY TO THE LEFT INDEX FINGER. Alert. SEPSIS SCREEN: Sepsis Screen. Negative (no infection suspected/documented). JARRET COMA SCORE: [place] Coma Scale: 15- eyes open spontaneously (4); best verbal response- oriented x 4 (5); best motor response- obeys commands (6). --20:39 Koko Mclaughlin R.N. 20:32 10/16/16. BP: 95/69. HR: 88. RR: 16. O2 saturation: 98%. Temp: 98.2 F. Pain level now: 08/15. --20:39 Koko Mclaughlin R.N. Weight: 81.6 kg stated. Height/Length: 62 inches Per Patient. BMI: 32.9. --20:37 Koko Mclaughlin R.N. Medications Pramipexole Dihydrochloride ER Oral 0.125 mg, 2-3 tablets at hs. Prazosin HCl Oral 1 mg, at bedtime. TraZODone HCl Oral 50 mg to 100 mg, at bedtime. Vitamin D Oral 50,000 units once a week. --20:37 Koko Mclaughlin R.N. Medication/allergy information source: the patient. --20:39 Koko Mclaughlin R.N. Allergies No Known Drug Allergy. --20:37 Koko Mclaughlin R.N. History Arrived by private vehicle. Historian: patient. Accompanied by friend. Primary physician (Kari [place]). This occurred just prior to arrival. Occurred at home. She sustained a laceration from a knife. 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 PAST MEDICAL HX: Immunizations: up-to-date. The patient has had a hysterectomy. SOCIAL HX: Heavy tobacco smoker- 1 pack per day. No alcohol use or drug use. No infectious disease exposure. ABUSE ASSESSMENT: No report of abuse. FALL RISK ASSESSMENT: Fall risk assessment completed. No fall risk identified. NUTRITIONAL RISK ASSESSMENT: The nutritional risk assessment revealed no deficiencies. FUNCTIONAL ASSESSMENT: Functional assessment: no impairments noted. LEARNING NEEDS ASSESSMENT: The learning needs assessment revealed no barriers. SKIN INTEGRITY ASSESSMENT: Skin integrity risk assessment completed. No skin integrity risk identified. --20:39 Koko Mclaughlin R.N. PROBLEMS: Costochondritis. Seizure Disorder. Alcoholism. Rib Fracture. Alcohol Intoxication. Peptic Ulcer Disease. PTSD. Panic Attack. Anxiety Reaction. Depression. --20:37 Koko Mclaughlin R.N. ADDITIONAL SURGERIES: Arm. Hernia Repair. Hysterectomy. Tubal Ligation. --20:37 Koko Mclaughlin R.N. Interventions ID band on patient. To treatment room. --20:39 Koko Mclaughlin R.N. PHYSICAL ASSESSMENT 20:39. Ambulatory to room. GENERAL / NEURO / PSYCH: Oriented X 4. Alert. EXTREMITIES: Neuro-vascular status intact to the extremity. Left index finger: subcutaneous laceration with controlled bleeding. SKIN: Skin is warm and dry. --20:39 Koko Mclaughlin R.N. NURSING PROGRESS NOTES 20:40. Two patient identifiers checked. Call light placed in reach. Bed placed in lowest position. Brakes of bed on. Patient ready for evaluation- chart flagged. --20:40 Koko Mclaughlin R.N. 20:47 10/16/2016 TDAP IM 0.5 mL given. (Lot#: [id number], expiration date: 09/11/2018, Learning Designer: sanofi pasteur). Given in the left deltoid. Allergies verified and confirmed 5 rights. Vaccine information statement provided to the patient. --20:51 Koko Mclaughlin R.N. 20:51 10/16/2016 Lidocaine Injection 2 % given. (On lac cart at bedside). --20:51 Koko Mclaughlin R.N. 20:51 10/16/2016 Sensorcaine (Bupivacaine HCl) Injection 0.5 % given. (On lac cart at bedside). --20:52 Koko Mclaughlin R.N. WOUND REPAIR: Preparation: suture tray set-up. --20:52 Koko Mclaughlin R.N. 21:23. WOUND REPAIR: Wound repair performed by ED physician. Assisted by one tech. The wound is located on the left index finger. Preparation: with 2% lidocaine and 0.50% Marcaine. Wound cleansed per physician and irrigated per physician. Procedure: wound repaired with sutures. Post-procedure: she was stable, no complications, bleeding controlled and neuro-vascular status intact distal to wound. Total time of assist / procedure: 15 minutes. --21:44 Koko Mclaughlin R.N. 21:38 Applied by [facility] chemistry quality control technician. Applied dressing, following the application of antibiotic ointment (bacitracin). Secured with tube gauze. Aluminum-foam finger splint applied to left index finger by tech. --21:46 Koko Mclaughlin R.N. 21:40. The patient is calm and resting quietly. GENERAL / NEURO / PSYCH: Alert. Oriented X 4. RESPIRATORY: No respiratory distress. SKIN: Skin is warm and dry. --21:46 Koko Mclaughlin R.N. DISPOSITION / DISCHARGE Departure time: 21:41. Condition at departure: stable. No learning barriers present. Discharge instructions provided and reviewed with warning coordination meteorologist and the patient. Patient verbalized understanding. Written instructions provided in Gibraltarian. The patient was discharged home and accompanied by warning coordination meteorologist. She left the Emergency Department ambulatory and via private vehicle. Drive In Waiter/Waitress driving. FALL RISK ASSESSMENT: Fall risk assessment completed. No fall risk identified. --21:41 Koko Mclaughlin R.N. 21:37 10/16/16. BP: 136/83. HR: 82. RR: 16. O2 saturation: 100% on room air. Pain level now: 0/10. --21:41 Koko Mclaughlin R.N. Locked/Released at 10/16/2016 21:47 by Koko Mclaughlin R.N.
--- NOTE | 2016-10-16 22:01 | ED DISCHARGE INSTRUCTIONS ---
Patient: ART MAURICE General Instructions [facility] VisitID: [id number] [place] [address] 51y, F Registration Date/Time: 10/16/2016 Single deep laceration to the left index finger.Treatment of laceration not delayed. No infection, foreign body present or left fingernail injury. INSTRUCTIONS Protect wound and keep wound area clean. Change dressing twice daily. You may wash wounds briefly, then dry. Apply bacitracin twice daily. Your Current Medications: CONTINUE TAKING THE FOLLOWING MEDICATIONS: Pramipexole Dihydrochloride ER Oral : 0.125 mg 2-3 tablets at hs. Prazosin HCl Oral : 1 mg at bedtime. TraZODone HCl Oral : 50 mg to 100 mg at bedtime. Vitamin D Oral : 50,000 units once a week. Follow-up: Follow up with your doctor in seven days for suture removal. Call for an appointment. Screening today revealed the patient's blood pressure to be in the normal range. ADDITIONAL INFORMATION Laceration (All Closures) Alaceration is a cut through the skin. This will usually require stitches (sutures) or marko if it is deep. Minor cuts may be treated with a surgical tape closure orskin glue. Home care The following guidelines will help you care for your laceration at home: Extremity, face, or trunk wounds Keep the wound clean and dry. If a bandage was applied and it becomes wet or dirty, replace it. Otherwise, leave it in place for the first 24 hours. If stitches or marko were used, clean the wound daily. After removing the bandage, wash the area with soap and water. Use a wet cotton swab to loosen and remove any blood or crust that forms. The doctor may prescribe an antibiotic cream or ointment to prevent infection. Do not stop taking this medication until you have finished the prescribed course or the doctor tells you to stop. The doctor may also prescribe medications for pain. Follow the doctors instructions for taking these medications. You may remove the bandage to shower as usual after the first 24 hours, but do not soak the area in water (no swimming) until the stitches or marko are removed. If surgical tape was used, keep the area clean and dry. If it becomes wet, blot it dry with a towel. If skin glue was used, do not scratch, rub, or pick at the adhesive film. Do not place tape directly over the film. Do not apply liquid, ointment, or creams to the wound while the film is in place. Do not clean the wound with peroxide and do not apply ointments. Avoid activities that cause heavy sweating until the film has fallen off. Protect the wound from prolonged exposure to sunlight or tanning lamps. You may shower as usual but do not soak the wound in water (no baths or swimming). The film will fall off by itself in 510 days. Scalp wounds During the first two days, you may carefully rinse your hair in the shower to remove blood, glass or dirt particles. After two days, you may shower and shampoo your hair normally. Do not soak your scalp in the tub or go swimming until the stitches or marko have been removed. Talk with your doctor before applying any antibiotic ointment to the wound. Mouth wounds Eat soft foods to reduce pain. If the cut is inside of your mouth, clean by rinsing after each meal and at bedtime with a mixture of equal parts water and hydrogen peroxide (do not swallow!). Or, you can use a cotton swab to directly apply hydrogen peroxide onto the cut. Mouth wounds can be painful when eating. You may use an [id number] local numbing solution for pain relief. If this is not available, you may use any numbing solution for teething babies. You may apply this directly to the sores with a cotton-tip swab or with your finger. Follow-up care Follow up with your health care provider. Most skin wounds heal within ten days. Mouth and facial wounds heal within five days. However, even with proper treatment, a wound infection may sometimes occur. Therefore, you should check the wound daily for signs of infection listed below. Stitches should be removed from the face within five days; stitches and marko should be removed from other parts of the body within 714 days. If dissolving stitches were used in the mouth, these will fall out or dissolve without the need for removal. If tape closures were used, remove them yourself if they have not fallen off after 7 days. Ifskin glue was used, the film will fall off by itself in 510 days. When to seek medical care Get prompt medical attention if any of these occur: Bleeding not controlled by direct pressure Signs of infection, including increasing pain in the wound, increasing wound redness or swelling, or pus coming from the wound Fever of 100.4F (38C) or higher, or as directed by your health care provider Stitches or marko come apart or fall out or surgical tape falls off before 7 days Wound edges re-open Bandage Change If the bandage becomes wet or dirty, replace it. Otherwise, leave it in place for the first 24 hours. Then once a day: After removing the bandage, wash the area with soap and water. Use a wet cotton swab to loosen and remove any blood or crust that forms on the wound. After cleaning, apply a thin layer of antibiotic ointment or cream. Reapply the bandage. You may shower as usual after the first 24 hours. If the bandage is on an arm or leg, cover it with a plastic bag rubber banded at both ends before showering. No tub baths or swimming until the bandage is removed and the wound healed (at least 7 days). You have been given the following additional information: Laceration, All Dressing Change (Electronically signed by Mann Oliveira Dr. 10/16/2016 22:01)
--- NOTE | 2016-10-16 22:02 | ED MAR SUMMARY ---
..... Medication Administration Record [facility] [address] [place] [address] Patient: ART MAURICE Visit ID: [id number] 51y, F Weight: 81.6 kg Height/Length: 62 in BMI: 32.9 ALLERGIES: No Known Drug Allergy Given 20:47 10/16/2016 Koko Mclaughlin, R.N. Medication Administered: TDAP [IM], Dose: 0.5 mL IM. Medication Ordered: Tdap IM 0.5 mL (NOW, per protocol). Given 20:51 10/16/2016 Koko Mclaughlin, R.N. Medication Administered: LIDOCAINE [INJECTION], Dose: 2 % Injection. Medication Ordered: Lidocaine Injection 2 % (soln) (NOW). Given 20:51 10/16/2016 Koko Mclaughlin, R.N. Medication Administered: SENSORCAINE [INJECTION] (BUPIVACAINE HCL), Dose: 0.5 % Injection. Medication Ordered: Sensorcaine Injection 0.5 % (soln) (NOW).
--- NOTE | 2016-10-16 22:02 | ED MED RECONCILIATION SUMMARY ---
Patient: ART MAURICE Medication Reconciliation Report [facility] VisitID: [id number] [address] [place] [address] 51y, F Registration Date/Time: 10/16/2016 Weight: 81.6 kg Height/Length: 62 in. BMI: 32.9 ALLERGIES: No Known Drug Allergy The patient's Home Medications are listed below: CONTINUE TAKING THE FOLLOWING MEDICATIONS: Pramipexole Dihydrochloride ER Oral 0.125 mg, 2-3 tablets at hs Prazosin HCl Oral 1 mg, at bedtime TraZODone HCl Oral 50 mg to 100 mg, at bedtime Vitamin D Oral 50,000 units once a week The source(s) of the original Home Medication information: patient The following Medications were given to the patient in the Emergency Department: TDAP [IM] IM 0.5 mL, administered: 10/16/2016 8:47:00 PM Lidocaine [Injection] Injection 2 %, administered: 10/16/2016 8:51:00 PM Sensorcaine [Injection] Injection 0.5 %, administered: 10/16/2016 8:51:00 PM The following Medications were prescribed to the patient: None.
--- NOTE | 2016-10-16 22:02 | ED MAR SUMMARY ---
..... Medication Administration Record [facility] [address] [place] [address] Patient: ART MAURICE Visit ID: [id number] 51y, F Weight: 81.6 kg Height/Length: 62 in BMI: 32.9 ALLERGIES: No Known Drug Allergy Given 20:47 10/16/2016 Koko Mclaughlin, R.N. Medication Administered: TDAP [IM], Dose: 0.5 mL IM. Medication Ordered: Tdap IM 0.5 mL (NOW, per protocol). Given 20:51 10/16/2016 Koko Mclaughlin, R.N. Medication Administered: LIDOCAINE [INJECTION], Dose: 2 % Injection. Medication Ordered: Lidocaine Injection 2 % (soln) (NOW). Given 20:51 10/16/2016 Koko Mclaughlin, R.N. Medication Administered: SENSORCAINE [INJECTION] (BUPIVACAINE HCL), Dose: 0.5 % Injection. Medication Ordered: Sensorcaine Injection 0.5 % (soln) (NOW).
--- NOTE | 2016-10-16 22:02 | ED MED RECONCILIATION SUMMARY ---
Patient: ART MAURICE Medication Reconciliation Report [facility] VisitID: [id number] [address] [place] [address] 51y, F Registration Date/Time: 10/16/2016 Weight: 81.6 kg Height/Length: 62 in. BMI: 32.9 ALLERGIES: No Known Drug Allergy The patient's Home Medications are listed below: CONTINUE TAKING THE FOLLOWING MEDICATIONS: Pramipexole Dihydrochloride ER Oral 0.125 mg, 2-3 tablets at hs Prazosin HCl Oral 1 mg, at bedtime TraZODone HCl Oral 50 mg to 100 mg, at bedtime Vitamin D Oral 50,000 units once a week The source(s) of the original Home Medication information: patient The following Medications were given to the patient in the Emergency Department: TDAP [IM] IM 0.5 mL, administered: 10/16/2016 8:47:00 PM Lidocaine [Injection] Injection 2 %, administered: 10/16/2016 8:51:00 PM Sensorcaine [Injection] Injection 0.5 %, administered: 10/16/2016 8:51:00 PM The following Medications were prescribed to the patient: None.
== END 2016-10-16 21:41 | disposition home or self-care (01) ==
LOC: ED SRH 20:20
DX: S61.211A Laceration without foreign body of left index finger without damage to nail, initial encounter (principal); W26.0XXA Contact with knife, initial encounter; Y93.9 Activity, unspecified; Y92.019 Unspecified place in single-family (private) house as the place of occurrence of the external cause; Y99.9 Unspecified external cause status; Z23 Encounter for immunization; Z79.899 Other long term (current) drug therapy; F17.210 Nicotine dependence, cigarettes, uncomplicated